=== PATIENT | female | born 1985 | race Hispanic/Latino ===

== ENCOUNTER 2017-10-21 11:45 | Outpatient (CLI) | payer MEDICAID ==
--- NOTE | 2017-10-21 14:34 | ULT ---
PELVIC ULTRASOUND: DATE: 10/21/17. HISTORY: First-trimester , unknown last menstrual period. FINDINGS: Multiple transabdominal sonographic images of the pelvis are obtained. The patient refused endovagin al imaging. FINDINGS: The uterus measures 9.7 cm x 5.4 cm x 6.4 cm. There is a fluid collection in the endometrial canal w hich could potentially represent a gestational sac. There is a linear echogenic focus measuring 0.53 cm in length which could potentially represent a pole. This would correspond to a gestational age of 6 weeks and 2 days. However, no heart tones are able to be detected at this time. No yolk sac is able to be visualized. The right ovary measures 4.6 cm x 4.6 cm x 3.9 cm with the left ovary larger in size measuring 6.1 cm x 5.6 cm x 4.6 cm. There are cystic lesions associated with each ovary which may represent either a closely adjacent cyst or complex cyst with internal septation. The cyst on the left measures 5.4 cm in maximal dimensions and on the right measures 3.9 cm in maximal dimensions. Doppler evaluation of thin rim of normal-appearing tissue does demonstrate arterial flow associated w ith each ovary. No free fluid is seen in the cul-de-sac. IMPRESSION: 1. Fluid collection in the endometrial canal with a question of very small pole. No hea rt tones are able to be documented and yolk sac is not definitely seen. Gestational age by measureme nt of the pole is 6 weeks and 2 days. Findings may be related to an early intrauterine gestati on, but followup evaluation in 1 week is recommended in addition to correlation with quantitative bet a HCG level. 2. Complex bilateral ovary cystic lesions, and these cystic lesions appear to represent cyst with se ptations as opposed to 2 closely adjacent cysts. This can be reevaluated on followup exam. POS: HOWARD
== END 2017-10-21 11:46 | disposition home or self-care (01) ==
LOC: ULT 11:45
PROVIDERS: ATTEND Family Medicine
DX: O34.81 Maternal care for other abnormalities of pelvic organs, first trimester (principal); N83.292 Other ovarian cyst, left side; N83.291 Other ovarian cyst, right side; Z3A.01 Less than 8 weeks gestation of pregnancy
CPT/HCPCS: 76856; 93976

== ENCOUNTER 2017-10-30 15:38 | Emergency (ER) | payer MEDICAID ==
[2017-10-30 16:08] LABS: #Eosinphils 0.3 thou/uL (0.0-0.7); #Lymphocytes 2.8 thou/uL (1.20-3.40); #Monocytes 0.3 thou/uL (0.11-0.59); #Neutrophils 4.8 thou/uL (1.40-6.50); %Basophils 0.2 % (0.0-1.0); %Eosinophils 3.9 % (0.0-10.0); %Lymphocytes 33.5 % (21.0-51.0); %Neutrophils 58.5 % (42.0-75.0); Hemoglobin 10.9 g/dL (12.0-16.0); Mean Corpuscular HGB CONC 33.2 g/dL (32.0-36.0); Mean Corpuscular Hemoglobin 24.9 pg (27.0-31.0); Mean Corpuscular Volume 74.9 fl (81.0-99.0); Mean Platelet Volume 6.5 fL (7.4-10.4); Platelet Count 433 thou/uL (130-400); RBC Distribution Width 15.3 % (11.5-14.5); Red Blood Cell (RBC) Count 4.39 mill/uL (4.20-5.40); White Blood Cell (WBC) Count 8.3 thou/uL (4.8-10.8)
[2017-10-30 16:30] LABS: Anisocytosis SLIGHT = 6-15 cells (100X) (0-5/hpf); MDiff Complete? YES; Microcytosis SLIGHT = 6-15 cells (100X) (0-5/hpf); PLT Morphology Comment Appears Increased; Polychromasia SLIGHT = 2-3 cells (100X) (0-2/hpf)
== END 2017-10-30 17:46 | disposition home or self-care (01) ==
LOC: ERS 15:38
DX: O03.4 Incomplete spontaneous abortion without complication (principal)
CPT/HCPCS: 36415; 84702; 85025; 86900; 86901; 99284

== ENCOUNTER 2017-11-02 17:37 | Day surgery (SDC) | payer OTHER ==
[~2017-11-02 17:37] MED LIST: Lidocaine 1% PF 5 ML VIAL ONE; PROPOFOL 200 MG/20 ML VIAL ONE
[2017-11-02 18:49] LABS: #Basophils 0.1 thou/uL (0.0-0.2); #Eosinphils 0.4 thou/uL (0.0-0.7); #Lymphocytes 2.8 thou/uL (1.20-3.40); #Monocytes 0.6 thou/uL (0.11-0.59); #Neutrophils 6.8 thou/uL (1.40-6.50); %Basophils 0.5 % (0.0-1.0); %Eosinophils 3.9 % (0.0-10.0); %Lymphocytes 26.1 % (21.0-51.0); %Monocytes 5.8 % (0.0-10.0); %Neutrophils 63.7 % (42.0-75.0); Hemoglobin 10.9 g/dL (12.0-16.0); Mean Corpuscular HGB CONC 32.9 g/dL (32.0-36.0); Mean Corpuscular Hemoglobin 24.7 pg (27.0-31.0); Mean Corpuscular Volume 75.1 fL (78.0-98.0); Mean Platelet Volume 6.5 fL (7.4-10.4); Platelet Count 442 thou/uL (130-400); RBC Distribution Width 15.3 % (11.5-14.5); Red Blood Cell (RBC) Count 4.42 mill/uL (4.20-5.40); White Blood Cell (WBC) Count 10.7 thou/uL (4.8-10.8)
[2017-11-02 18:50] LABS: BHCG - Serum POSITIVE (NEGATIVE); Pregs Control Background? CLEAR/WHITE (CLR/WHITE); Pregs Control Bar Appear? YES (CONTROL BAR)
[2017-11-02] MEDS ORDERED: HYDROcodone/Acetaminophen 10/325 mg Tablet ONE (18:55)
[2017-11-02] MEDS ORDERED: Ondansetron ODT 8 MG TAB ONE (20:50)
--- NOTE | 2017-11-02 21:02 | ULT ---
TRANSABDOMINAL AND TRANSVAGINAL PELVIC ULTRASOUND WITH DOPPLER 11/02/17 PROVIDED CLINICAL HISTORY: Pelvic pain and bleeding. FINDINGS: Comparison is made with the study dated 10/21/17. The uterus measures about 11.1 x 5.2 x 6.4 cm. There is a fluid collection present in the lower uterine segment compatible with a gestational sac and cont aining a pole. Measurements by crown-rump length corresponds to a 7 week, 1 day gestation. No f etal heart tones are detected. There are bilateral complex ovarian cystic structures which may be physiologic in nature. On the righ t, this measures approximately 4.5 cm x 5.4 cm x 4.2 cm. On the left, this measures approximately 5.3 x 6.1 x 5.2 cm. Color doppler and spectral analysis of the ovarian waveforms demonstrates flow bilaterally. IMPRESSION: 1. Findings compatible with failure. 2. Bilateral complex cystic ovarian structures which may be physiologic. 12 week followup is rec ommended. POS: DEBORAH
[2017-11-02] MEDS ORDERED: Midazolam HCl 2 mg/2 ml Vial ONE ×2 (21:16→22:19)
[2017-11-02] MEDS ORDERED: Fentanyl 100 MCG/2 ML VIAL ONE ×2 (21:16→22:46)
[2017-11-02] MEDS ORDERED: cefTRIAXone\\ROCEPHIN 1 GM VIAL ONE (21:41)
--- NOTE | 2017-11-02 22:03 | PDOC.EVN ---
Event Note - Event Note Event Note: HISTORY AND PHYSICAL Patient sen at bedside and has a handwritten H&P in the physical chart, and scanned documents. In brief, 31 yo with 6 week inevitable AB...for suction D&C. I have given her informed consenmt in [facility]. Risks include anesthesia risks, perforation, infection, need for further surgery. Questions answered. i also translated for Paul for anesthesia regarding IV sedation for the procedure and/or general anesthesia. Patient of Dr Huerta from [facility]. RH positive. To OR for D&C due to open cervical OS, bleeding, cramping. Rocephin 1 gram given OCTOR.
[2017-11-02] MEDS ORDERED: Lactated Ringer's 1,000 ML IV SCH ×2 (22:15→23:00)
[2017-11-02] MEDS ORDERED: Succinylcholine Chloride 20 MG/ML 10 ml SYRINGE FS ONE (22:17)
[2017-11-02] MEDS ORDERED: Methylergonovine 0.2 MG/ML VIAL ONE (22:29)
[2017-11-02] MEDS ORDERED: Acetaminophen/Codeine 30-300mg Tablet PO PRN (22:42)
--- NOTE | 2017-11-02 23:21 | OP ---
LOCATION: [facility]. PROCEDURE TIME: Roughly 2220 hours. PREOPERATIVE DIAGNOSIS: Patient who has had a x1 with a 6-week missed , inevitable miscarriage. POSTOPERATIVE DIAGNOSES: 1. Patient who has had a x1 with a 6-week missed , inevitable miscarriage. 2. Status post suction dilatation and curettage under ultrasound guidance. PROCEDURE: OB suction dilation and curettage using a #7 curved plastic curet with vacuum pressures of 40 mmHg. Abdominal ultrasound was performed by Olya Alva with [facility]. SURGEON: Ji Del Cid MD SENIOR BEHAVIORAL SCIENTIST: Olya Alva MD for the transabdominal ultrasound performance. ANESTHESIA: IV sedation. ESTIMATED BLOOD LOSS: Less than 10 mL. IV FLUIDS: LR crystalloid along with 1 gram Rocephin being given intraoperatively. MEDICATIONS: Medication also given was 0.2 mg of Methergine IM x1 in the left leg. FINDINGS: 1. No vulvovaginal lesions. 2. Those products of conception seen at the external cervical os, which were removed by alligator forceps. 3. Cervix was dilated to 1 cm. 4. No evidence of retained tissue was seen by transabdominal ultrasound. 5. Hemostasis post-procedure. URINE OUTPUT: Through in and out catheterization about 200 mL. SPECIMENS: Tissue is to pathology. COMPLICATIONS: None. COUNTS: All counts were correct. DISPOSITION: To recovery room where the patient will be able to be discharged home after routine recovery. INDICATION FOR PROCEDURE: The patient was seen in the ER and was diagnosed with a 6-week inevitable . Due to active bleeding and cramping, the decision was made to proceed with an OB suction dilation and curettage. TECHNIQUE: After proper informed consent was explained, she was taken to [facility] where she was placed under IV conscious sedation. She was placed in dorsal lithotomy position in candy cane stirrups and all pressure points were adequately padded. The patient's vulva, vagina, and lower abdomen were prepped and draped in the usual sterile fashion. In and out catheterization of the bladder revealed clear urine. A Graves bivalve speculum was used to visualize the cervix. A single-tooth tenaculum was placed on the anterior lip of the cervix for retraction. Products of conception were seen at the external os and removed with alligator forceps without entry into the cavity. Next, suction curettage was performed with #7 plastic curet without difficulty. Four passes were done of the uterine cavity without complication. Sounding was not performed in order to prevent perforation. At the end of our suction, transabdominal ultrasound, saw an endometrial stripe without evidence of retained tissue. This was an informal ultrasound without a report being generated. At the end of the procedure, tissue was sent to pathology. She was taken down from dorsal lithotomy position and she seemed to tolerate the procedure well. DISPOSITION: She will go to recovery room where she will be sent home after routine recovery with Motrin and doxycycline 100 mg 1 p.o. b.i.d. for 3 days. As the patient is awake, I have explained all of these things to her. She voiced understanding. She will follow up in 1 week with the clinic. LILLIAN
== END 2017-11-03 00:12 | disposition home or self-care (01) ==
LOC: ERS 17:37 → EDSTATUS 17:37 → SDC/OP 21:58
PROVIDERS: ATTEND Obstetrics & Gynecology
PROC: 10D17ZZ Extraction of Products of Conception, Retained, Via Natural or Artificial Opening (ICD-10-PCS; principal; 2017-11-02)
DX: O02.1 Missed abortion (principal)
CPT/HCPCS: 36415; 76856; 84703; 85025; 86850; 86900; 86901; 88305; 96374; 96375; J0696; J2001; J2210; J2250; J2270; J2704; J3010

== ENCOUNTER 2019-06-26 11:24 | Inpatient (IN) | payer MEDICAID, OTHER, SELFPAY ==
[2019-06-26] MEDS ORDERED: hydrALAZINE 20 MG/ML VIAL SLOW IVP PRN (11:46)
--- NOTE | 2019-06-26 11:48 | PDOC.FPROB ---
FMR OB H&P: HPI - History of Present Illness Chief Complaint: Decreased FM no heart tones in clinic Indentification: 33yo History of Present Illness: Luz was at [facility] clinic for her routine obstetric appointment today and the clinic was unable to obtain heart tones. She was immediately sent from clinic to L&D for further evaluation. She endorses decreased movement since yesterday. Otherwise, she has not had fever, chills, signs of infection, vaginal bleeding, change in discharge, or trauma. Primary Care Physician: [facility] Montserrat Harkins FMR OB H&P: Current - Care : 3 Para: 1011 Gestational age: 22wks Due date: 10/30/2019 Dating Criteria: LMP - OB Labs Blood type: unknown RH: unknown Antibody Screen: unknown HIV: unknown RPR: unknown HepBsAg: unknown Quad screen: negative Gonorrhea: negative Chlamydia: negative A1c: 5.7 GBS: unknown FMR OB H&P: History - Past Medical History PMH: None - OB History OB History: SAB ~8wks gestation, s/p D&C Living child 7 years old. Delivered via for failure to progress. - SOLAR ELECTRIC/PHOTOVOLTAIC INSTALLER History SOLAR ELECTRIC/PHOTOVOLTAIC INSTALLER History: Denies - Surgical History Sx History: Cesarian x 1 - Social History Social History: Denies alcohol, tobacco, or illicit drug use. - Family History Family History: Mother: DM HTN FMR OB H&P: Medications - Current Home Medications: Medication Instructions Recorded Confirmed Type Aspirin [Aspir-Low] 81 mg PO DAILY 06/26/19 06/26/19 History Ferrous Sulfate [Iron] 325 mg PO DAILY 06/26/19 06/26/19 History Pnv No.95/Ferrous Fum/Folic AC 1 each PO DAILY 06/26/19 06/26/19 History [ Formula] Allergies/Adverse Reactions: Allergies Allergy/AdvReac Type Severity Reaction Status Date / Time No Known Drug Allergies Allergy Unverified 06/26/19 13:01 FMR OB H&P: ROS - Review of Systems General: denies: fever/chills, weight/appetite/sleep changes, night sweats, fatigue Eyes: denies: eye pain, vision changes ENT: denies: nasal congestion, rhinorrhea, sore throat Cardiovascular: denies: chest pain, palpitation, edema Respiratory: denies: cough, congestion, shortness of breath Gastrointestinal: denies: abdominal pain, cramping, nausea, vomiting, diarrhea, constipation Genitourinary (Female): denies: incontinence, dysuria, hematuria Musculoskeletal: denies: pain, stiffness, tenderness Neurologic: denies: numbness, syncope Integumentary: denies: itching, rash Endocrine: denies: polydipsia, polyuria Hematologic/Lymphatic: denies: prolonged or excessive bleeding, enlarged lymph nodes Psychological: denies: depression, anxiety FMR OB H&P: Vital Signs - Maternal Vital signs: Selected Entries 06/26/19 12:01 Temperature 98.6 F Pulse Rate 77 Blood Pressure 147/85 H [Semi-Fowlers] Respiratory 18 Rate FMR OB H&P: Physical Exam - Physical Exam General: NAD, awake, alert and oriented HEENT: normocephalic and atraumatic, EOMI, MMM, conjunctiva clear, grossly normal vision, grossly normal hearing Neck: FROM, trachea midline Chest: non-tender to palpation Heart: RRR, normal S1/S2, no murmurs/rubs/gallops General: CTAB, no respiratory distress Abdomen: soft, gravid, non-tender Musculoskeletal: normal gait and station, pulses present Skin: no rash, good tugor Lymphatic: no unusual bruising or bleeding, no purpura, no petechia Psychiatric: intact recent and remote memory, good judgement and insight, normal mood and affect FMR OB H&P: Results - Imaging Imaging: OB US showed no cardiac activity FMR OB H&P: A/P - Problem List (1) IUFD at 20 weeks or more of gestation Current Visit: Yes Status: Acute Code(s): O36.4XX0 - MATERNAL CARE FOR INTRAUTERINE , NOT APPLICABLE OR UNSP Disposition: IUFD @ 22wks EGA - No significant risk factors identified. Afebrile, no vaginal bleeding or discharge. - Discussed at length with patient. Discussed options for genetic testing and autopsy. She will consider workup. - Plan is for Cytotec induction of labor. - Cytotec 400mcg vaginally, q 4hr. - Pain management with IV pain medications as well as possible epidural. Discussion: Date/Time: 06/26/19 1148 Signature: This plan was formed and discussed with Dr. Betts and Dr. Larios as attending. Addendum - Attending - Attending Attestation Date/Time: 06/27/19 0901 I personally evaluated the patient and discussed the management with Dr. Caruso yesterday. I agree with the History, Examination, Assessment and Plan documented above with any addition or exceptions noted below.
[2019-06-26] MEDS ORDERED: Promethazine HCl 25 MG/ML VIAL IM PRN (12:58)
[2019-06-26] MEDS ORDERED: Ondansetron PF 4 MG/2 ML Vial IVP PRN (12:58)
[2019-06-26] MEDS ORDERED: Acetaminophen 500 MG TAB PO PRN (12:58)
[2019-06-26 13:00] VITALS: BP 147/85; TEMP 98.6; BMI 41.4
[2019-06-26] MEDS ORDERED: Misoprostol 200 MCG TAB VAG SCH (13:15)
--- NOTE | 2019-06-26 13:41 | ULT ---
EXAM: Pelvic ultrasound HISTORY: No heart tones in clinic COMPARISON: None TECHNIQUE: Multiple grayscale and color Doppler images were obtained in a transabdominal pelvic ultra sound. FINDINGS: An intrauterine is seen. No heart tones are able to be detected within the well forme d fetus. IMPRESSION: demise.
[2019-06-26] MEDS: Lactated Ringer's 1,000 ML IV SCH ×2 (14:02→17:05)
[2019-06-26 16:05] LABS: Hemoglobin 10.8 g/dL (12.0-16.0); Platelet Count 369 thou/uL (130-400)
[2019-06-26] MEDS: Misoprostol 200 MCG TAB VAG SCH ×2 (18:33→22:38)
--- NOTE | 2019-06-26 18:53 | PDOC.LDPN ---
Labor & Delivery Progress Note - Subjective Subjective: comfortable - Objective Abnormal vital signs: BP's 130's-150's/70's-80's General: NAD, resting Uterine fundus: non tender SVE: 18:45 Dilation: 0 Effacement: 0% Station: -3 -: Placed second dose of cytotec 400 mcg at appx 18:45. [place] as if the other two cytotecs placed 4 hours ago did not dissolve completely. Used gel in attempt to help cytotec dissolve more effectively. Cervix closed and thick. Patient comfortable. BP's noted to be elevated with one in severe range, but on repeat 1 minute later with BP cuff adjustment, noted to be 150's systolic. Patient asymptomatic. Will check CMP and urine protein/creatinine. H/H with platelets done earlier today and Hg of 10.8 noted with normal platelet count. Continue to monitor. Ana Perry, DO PGY-3
[2019-06-26 19:18] LABS: ALT (SGPT) 8 U/L (8-55); AST (SGOT) 11 U/L (5-34); Albumin 3.5 g/dL (3.5-5.0); Alkaline Phosphatase 115 U/L (40-110); Anion Gap 12 mmol/L (10-20); BUN (Urea Nitrogen) 6 mg/dL (7.0-18.7); Bilirubin, Total 0.2 mg/dL (0.2-1.2); Calc. Creatinine Clearance 245 mL/min (70-130); Calcium 8.7 mg/dL (7.8-10.44); Carbon Dioxide 21 mmol/L (22-29); Chloride 108 mmol/L (98-107); Estimated GFR-MDRD Greater than 90; Globulin 2.9 g/dL (2.4-3.5); Glucose 73 mg/dL (70-105); Protein, Total 6.4 g/dL (6.0-8.3); Sodium 137 mmol/L (136-145)
[2019-06-26 23:42] LABS: Creatinine, Urine 64.71 mg/dL (47-110); Protein, Urine Random Quant Less than 10 mg/dL (1-14)
--- NOTE | 2019-06-26 23:44 | PDOC.LDPN ---
Labor & Delivery Progress Note - Subjective Subjective: comfortable - Objective Abnormal vital signs: BP high to 157/73 General: NAD, resting Uterine fundus: non tender SVE: 22:30 Dilation: 0 Effacement: 0% Station: -3 -: Placed additional dose of cytotec. Attempted to dissolve cytotec slightly prior to placement. Cervix noted to be softer, but still no dilation. Patient comfortable. Patient with family present. Plan is to have nurse place next cytotec when time. Discussed patient getting epidural when/if desired. Patient does plan for epidural but is comfortable now. In regards to elevated BP, CBC and CMP appropriate. Still pending urine protein/ creatinine. Patient asymptomatic. Will continue to monitor BP.
[2019-06-26] MEDS: Butorphanol Tartrate 1 MG/ML VIAL SLOW IVP PRN (23:56)
[2019-06-27] MEDS: Butorphanol Tartrate 1 MG/ML VIAL SLOW IVP PRN ×3 (02:41→06:54)
[2019-06-27] MEDS: Misoprostol 200 MCG TAB VAG SCH ×2 (02:43→06:31)
[2019-06-27] MEDS ORDERED: NS / Oxytocin 40 units/1000ml 1,000 ML ONE (06:53)
--- NOTE | 2019-06-27 07:26 | PDOC.LDPN ---
Labor & Delivery Progress Note - Subjective Subjective: painful contractions, vaginal pressure - Objective Vital signs reviewed and normal: yes General: NAD - Assessment (1) IUFD at 20 weeks or more of gestation Code(s): O36.4XX0 - MATERNAL CARE FOR INTRAUTERINE , NOT APPLICABLE OR UNSP Status: Acute Plan: continue plan of care -: She is currently on the toilet, she feels the urge to urinate and lots of vaginal pressure. Call light cord placed in reach. She desires to be left alone at this time. No cervical exam was performed. She is gregg approximately q3 minutes with significant vaginal pressure. Will await delivery. Addendum - Attending - Attending Attestation Date/Time: 06/27/19 4487 I personally evaluated the patient and discussed the management with Dr. Caruso I agree with the History, Examination, Assessment and Plan documented above with any addition or exceptions noted below. Called shortly afterwards with delivery of fetus. Dr. Escalante present. Bro
--- NOTE | 2019-06-27 08:24 | PDOC.OPDEL ---
OB Operative/Delivery Note Delivery Dr/Surgeon: Shady Ricardo / Ava - Additional Findings/Plan Compilations/Other Findings: Vaginal Delivery note Delivering Physicians: Shady Ricardo Attending: Ava Procedure: Spontaneous Vaginal Delivery Anesthesia: None, Stadol for pain control. EBL: 250ml Pre-op Diagnosis: 1. IUFD @ 22wks gestational age 2. History of pre-eclampsia with prior Post-op Diagnosis: 1. IUFD @ 22wks gestational age 2. Same as above Indications: A 33y/o female presented to L&D for undetectable heart tones in clinic. US revealed no cardiac activity on 06/26/2019. A cytotec induction was initiated. Delivery Note: This is 33y/o female @ 22wks who delivered a M at 0740. Following an uneventful course, she spontaneously delivered the fetus. Cord clamped and cut. Placenta delivered intact with a 3 vessel cord noted. Fundal massage was performed and the fundus was firm. The vagina was inspected and found to be free of lacerations. Patient tolerated delivery well and went to after routine recovery/care. Initial gross inspection of the fetus shows no obvious abnormalities. Placenta will be sent to laboratory for pathology. Mom declined genetic testing. Patient had several elevated blood pressures during her antepartum course. We will monitor in post for several hours after delivery. Addendum - Attending - Attending Attestation Date/Time: 06/28/19 0100 I was present and supervised the of this nonviable male . Infant delivered in breech presentation with maternal expulsive efforts without difficulty. Placenta delivered shortly thereafter spontaneously and intact. Cords was clamped and cut. was wrapped in blanket and taken from room for measurements. No perineal or vaginal lacerations present. Fundus form. EBL= 250 mL Upon examination, no obvious anomalies were visible. Size appeared consistent with gestational age. [id number]. Infant footprinted and wrapped in blanket and returned to mother.
[2019-06-27] MEDS ORDERED: Adacel (T-DAP) 0.5 ML SYRINGE IM ONE (09:34)
[2019-06-27] MEDS ORDERED: NS / Oxytocin 40 units/1000ml 1,000 ML IV SCH (09:34)
[2019-06-27] MEDS ORDERED: Milk Of Magnesia 30 ML UDCUP PO PRN (09:34)
[2019-06-27] MEDS ORDERED: Bisacodyl 10 MG SUPP PR PRN (09:34)
[2019-06-27] MEDS ORDERED: Docusate Calcium (SURFAK) 240 MG CAP PO SCH ×2 (09:45→21:00)
--- NOTE | 2019-06-27 10:54 | PDOC.BPN ---
<Giuliana Caruso D - Last Filed: 06/27/19 10:51> - Brief Progress Note S: Luz is doing well. No complaints. 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 O: BPs: 125/73, 126/71, 114/66, 120/72, 130/75, 135/85, 126/74, 121/66, 119/68, 123 /71, 127/73 Recovery QBL: 150mL. Total QBL: 400mL. VSS. No acute distress. A/P: s/p delivery of 22wk IUFD, 0740 06/27/2019. Recovery until early afternoon. If still doing well and no elevated pressures, will d/c home with plan for f/u at [facility] later this week. Lou MUÑIZ PGY1 <Liberty Steiner - Last Filed: 06/27/19 16:51> Addendum - Attending - Attending Attestation Date/Time: 06/27/19 1056 I personally evaluated the patient and discussed the management with Dr. Caruso I agree with the History, Examination, Assessment and Plan documented above with any addition or exceptions noted below. Likely d/c in early afternoon. Bro
--- NOTE | 2019-06-27 11:21 | PDOC.EVN ---
Event Note - Event Note Event Note: 33 y/o female @ 22wks here s/p 2/2 IUFD. Pt is comfortable in bed. Denies excessive bleeding or pain. She would like a note to be excused from work for two weeks. She will follow-up with [facility] in 1-2 weeks. ER precautions given. Support provided. Attending note: Agree with above. Ok to d/c to home. Bro
[2019-06-27] MEDS ORDERED: Ibuprofen 800 MG TAB PO SCH (14:00)
--- NOTE | 2019-06-27 14:20 | PDOC.BPN ---
<Valentina Ricardo - Last Filed: 06/27/19 14:20> - Brief Progress Note BP monitoring shows resolution of severe range pressures Predominantly in 120s up to 135 systolic No further VB, uterus firm below umbilicus Patient asking to go home, feels comfortable and ready, will send with pain medications No other concerns at this time Advised to f/u at [facility] next week Gave precautions-if continuing to pass tissue, worsening bleeding please call ER or [facility] <Liberty Steiner - Last Filed: 06/27/19 16:56> Addendum - Attending - Attending Attestation Date/Time: 06/27/19 9392 I personally evaluated the patient and discussed the management with Dr. Ricardo I agree with the History, Examination, Assessment and Plan documented above with any addition or exceptions noted below. Bro
[2019-06-27] MEDS ORDERED: Ferrous Sulfate 325 MG TAB PO SCH (17:00)
== END 2019-06-27 12:53 | disposition home or self-care (01) | DRG 807 ==
LOC: L&D/OP 11:24 → L&D 15:38
PROVIDERS: ADMIT Family Medicine; ATTEND Family Medicine
PROC: 10E0XZZ Delivery of Products of Conception, External Approach (ICD-10-PCS; principal; 2019-06-26)
PROC: 3E033VJ Introduction of Other Hormone into Peripheral Vein, Percutaneous Approach (ICD-10-PCS; 2019-06-26)
DX: O36.4XX0 Maternal care for intrauterine death, not applicable or unspecified (principal); Z37.1 Single stillbirth; Z3A.22 22 weeks gestation of pregnancy
CPT/HCPCS: 76815; 80053; 82570; 84156; 85014; 85018; 85049; 86850; 86900; 86901; 99285; J0595